=== PATIENT | female | born 1945 | race Caucasian/White ===

== ENCOUNTER 2020-07-23 10:21 | Day surgery (SDC) | payer MEDICARE, OTHER ==
[~2020-07-23 10:21] MED LIST: Lactated Ringers 1,000 ML IV SCH
--- NOTE | 2020-07-23 12:02 | PCM.PREANE ---
Preanesthetic Assessment - Anesthesia/Transfusion/Family Hx Anesthesia History: Prior Anesthesia Without Reaction Family History of Anesthesia Reaction: No Transfusion History: No Prior Transfusion(s) Intubation History: Unknown - Review of Systems General: No Symptoms Pulmonary: No Symptoms Cardiovascular: No Symptoms Gastrointestinal: No Symptoms Neurological: No Symptoms Other: Reports: None - Physical Assessment Height: 5 ft 6 in Weight: 81.647 kg ASA Class: 2 Mental Status: Alert & Oriented x3 Airway Class: Mallampati = 2 Dentition: Reports: Normal Dentition, Bridge (fixed left lower) Thyro-Mental Finger Breadths: 3 Mouth Opening Finger Breadths: 3 ROM/Head Extension: Limited/Partial Lungs: Clear to Auscultation, Normal Respiratory Effort Cardiovascular: Regular Rate, Regular Rhythm - Lab Values: Laboratory Last Values SARS-CoV-2 RNA ([facility]) NEGATIVE (NEGATIVE) 07/23/20 10:18 - Allergies Allergies/Adverse Reactions: Allergies Allergy/AdvReac Type Severity Reaction Status Date / Time No Known Allergies Allergy Verified 07/22/20 15:34 - Blood Blood Available: No - Anesthesia Plan Pre-Op Medication Ordered: None - Acknowledgements Anesthesia Type Planned: General Anesthesia Pt an Appropriate Candidate for the Planned Anesthesia: Yes Alternatives and Risks of Anesthesia Discussed w Pt/Guardian: Yes Pt/Guardian Understands and Agrees with Anesthesia Plan: Yes PreAnesthesia Questionnaire HEENT History: Reports: Other (See Below) Other HEENT History: glasses Cardiovascular History: Reports: High Cholesterol, Hypertension Respiratory History: Reports: Sleep Apnea Other Respiratory History: uses CPAP Gastrointestinal History: Reports: None Genitourinary History: Reports: None STOCK PATCHER History: Reports: Musculoskeletal History: Reports: Arthritis, Fracture, Other (See Below) (rt. ankle fx. at present) Neurological History: Reports: None Psychiatric History: Reports: None Endocrine/Metabolic History: Reports: None Hematologic History: Reports: None Immunologic History: Reports: None Oncologic (Cancer) History: Reports: None Dermatologic History: Reports: None - Past Surgical History Head Surgeries/Procedures: Reports: None HEENT Surgical History: Reports: None Cardiovascular Surgical History: Reports: None Respiratory Surgical History: Reports: None GI Surgical History: Reports: Appendectomy Female Surgical History: Reports: Hysterectomy, Other (See Below) Other Female Surgeries/Procedures: laparotomy for removal of fibroid Endocrine Surgical History: Reports: None Neurological Surgical History: Reports: None Musculoskeletal Surgical History: Reports: Other (See Below) Other Musculoskeletal Surgeries/Procedures:: sx for fx rt wrist Oncologic Surgical History: Reports: None Dermatological Surgical History: Reports: None - SUBSTANCE USE Tobacco Use Status *Q: Never Tobacco User - HOME MEDS Home Medications: Home Meds Antiox.mv No.10/Omeg3s/Lut/Cristian [I-Caps with Lutein-Callery 3 SFG] 1 tab PO ASDIRECTED 07/22/20 [History] Calc/D3/Mag/Zn/Best/Matt/Tuttle [Calcium 600 MG Plus Vit D] 1 tab PO DAILY 07/22/20 [History] Calcium Citrate 600 mg PO DAILY 07/22/20 [History] Cetirizine HCl [Allergy Relief] 10 mg PO DAILY 07/22/20 [History] Ciprofloxacin HCl [Cipro] 500 mg PO BID 07/22/20 [History] Cyanocobalamin (Vitamin B12) [Vitamin B12] 500 mcg PO DAILY 07/22/20 [History] Fish Oil/DHA/EPA [Fish Oil 1,200 MG] 300 mg PO BID 07/22/20 [History] Irbesartan 150 mg PO DAILY 07/22/20 [History] Magnesium 250 mg PO DAILY 07/22/20 [History] Metoprolol Tartrate 100 mg PO DAILY 07/22/20 [History] Multivit-Min/Iron/Folic/Lutein [Centrum Silver Women Tablet] 1 tab PO ASDIRECTED 07/22/20 [History] Turmeric Root Extract [Turmeric] 500 mg PO DAILY 07/22/20 [History] Ubidecarenone [Coq10] 50 mg PO DAILY 07/22/20 [History] Verapamil HCl [Verapamil Sr] 240 mg PO DAILY 07/22/20 [History] - CURRENT (IN HOUSE) MEDS Current Meds: Current Medications Lactated Ringer's (Ringers, Lactated) 1,000 mls @ 125 mls/hr IV ASDIRECTED [facility]
[2020-07-23] MEDS ORDERED: Bupivacaine 0.5% 30 ML SDV ONE (12:28)
[2020-07-23] MEDS ORDERED: Midazolam 1 MG/ML 2 ML SDV ONE (12:32)
[2020-07-23] MEDS ORDERED: Propofol 200 MG/20 ML SDV ONE ×2 (12:32→12:34)
[2020-07-23] MEDS ORDERED: Ondansetron 4 MG/2 ML SDV ONE (12:32)
[2020-07-23] MEDS ORDERED: fentaNYL 250 MCG/5 ML SDV ONE (12:32)
[2020-07-23] MEDS ORDERED: Lidocaine 2% 5 ML SDV ONE (12:32)
[2020-07-23] MEDS ORDERED: Ketamine 500 mg/10 ML MDV ONE (12:35)
[2020-07-23] MEDS ORDERED: ceFAZolin/Dextrose,Iso-Osmotic 2 GM/50 ML Duplex Bag IV ONE (12:39)
[2020-07-23] MEDS ORDERED: ceFAZolin 2 GM in Premix Bag 1 BAG IV ONE (12:41)
--- NOTE | 2020-07-23 14:05 | PCM.OPNOTE ---
- General Post-Op/Procedure Note Date of Surgery/Procedure: 07/23/20 Operative Procedure(s): Open reduction and internal fixation of right distal fibula/lateral malleolus fracture Findings: Displaced lateral malleolus ankle fracture Pre Op Diagnosis: Right displaced lateral malleolus ankle fracture Post-Op Diagnosis: Right displaced lateral malleolus ankle fracture Anesthesia Technique: General LMA Primary Surgeon: William Medrano Sea Foam Kiss Maker: Heide Taveras Reason Sea Foam Kiss Maker Was Necessary: Retraction and positioning Pathology: None EBL in mLs: 5 Complications: None Free Text/Narrative:: Patient slipped on the ice and injured her right ankle. 2 days later she was seen in the [facility] and noted to have a displaced lateral malleolus ankle fracture. I saw her in referral and recommended open reduction internal fixation because of the unstable pattern of the fracture. All questions were answered. Patient consented to proceed with surgery. She was medically cleared for surgery. Patient was taken to the operating room. After adequate general anesthesia she remained in the supine position. Tourniquet is placed around the right proximal thigh. Right lower extremities prepped and draped in usual sterile manner. A longitudinal incision was made along the posterior border of the fibula. Skin was incised with a scalpel. Subcutaneous tissue was incised electrocautery. Fascia was opened over the distal fibula. A carrizales elevator was used to elevate the periosteum. The fracture was exposed and cleared of callus. The fracture was able to be manually reduced. A 5 hole one third tubular plate was then applied and sequential screws placed in the second third and fourth holes with the plate reducing the fracture anatomically. Additional screws were then placed in the first and fifth holes. C arm was brought in and noted anatomic reduction of the fracture with reconstruction of the mortise with even gaps. Wounds were irrigated. Fascia was closed with interrupted #1 Vicryl suture. Subcutaneous tissue was closed with interrupted 2-0 Vicryl suture. Monocryl was used for final skin closure. Sterile dressing was applied and patient was placed in a short leg splint and accompanied the recovery room in stable condition. Pain management: Acetaminophen and hydrocodone. Prophylactic antibiotics: Not indicated for outpatient procedure. Venous thromboembolism prophylaxis: 2 baby aspirin daily for 90 days. Restrictions: Patient is nonweightbearing on her right lower extremity for 6 weeks. She should remain in the postoperative splint for 2 weeks until she is seen in clinic and then be placed back in her boot but remain nonweightbearing for an additional 4 weeks. She may do ankle range of motion and stretching exercises on her own. At 6 weeks she will become weightbearing as tolerated in the fracture boot for an additional 6 weeks.
[2020-07-23] MEDS ORDERED: oxyCODONE 5 MG Tab ONE (15:31)
[2020-07-23] MEDS ORDERED: oxyCODONE 5 MG Tab PO ONE (15:32)
--- NOTE | 2020-07-23 15:53 | PCM.POSTAN ---
POST ANESTHESIA ASSESSMENT - MENTAL STATUS Mental Status: Alert (Late entry, assessed at 1147), Oriented - VITAL SIGNS Vital Signs: Last Vital Signs Temp 36.2 C 07/23/20 14:14 Pulse 58 L 07/23/20 14:45 Resp 14 07/23/20 14:45 BP 132/64 07/23/20 14:45 Pulse Ox 94 L 07/23/20 14:45 - RESPIRATORY Respiratory Status: Respiratory Rate WNL, Airway Patent, O2 Saturation Stable - CARDIOVASCULAR CV Status: Pulse Rate WNL, Blood Pressure Stable - GASTROINTESTINAL GI Status: No Symptoms - PAIN Pain Score: 3 (RLE) - POST OP HYDRATION Hydration Status: Adequate & Stable
--- NOTE | 2020-07-23 15:54 | PCM48HPAN ---
Post Anesthesia Note - EVALUATION WITHIN 48HRS OF ANESTHETIC Vital Signs in Normal Range: Yes Patient Participated in Evaluation: Yes Respiratory Function Stable: Yes Airway Patent: Yes Cardiovascular Function Stable: Yes Hydration Status Stable: Yes Pain Control Satisfactory: Yes Nausea and Vomiting Control Satisfactory: Yes Mental Status Recovered: Yes Vital Signs: Last Vital Signs Temp 36.2 C 07/23/20 14:14 Pulse 58 L 07/23/20 14:45 Resp 14 07/23/20 14:45 BP 132/64 07/23/20 14:45 Pulse Ox 94 L 07/23/20 14:45 - COMMENTS/OBSERVATIONS Free Text/Narrative:: Taking PO without nausea, pain well-controlled, alert, oriented, and conversing. Okay to discharge home.
--- NOTE | 2020-07-23 20:49 | CR ---
Indication: ORIF distal fibula. Technique: 2.0 seconds of intraoperative fluoroscopy was provided. Two intraoperative images were obtained. Comparison: None Findings: A plate and screws are identified at the level of distal fibula. Impression: Intraoperative images obtained. Dictated by Genie Yusuf MD @ Jul 23 2020 8:46PM Signed by Dr. Genie Yusuf @ Jul 23 2020 8:47PM
== END 2020-07-23 16:00 | disposition home or self-care (01) ==
LOC: MW.SDS 10:21
PROVIDERS: ATTEND Orthopaedic Surgery
DX: S82.61XA Displaced fracture of lateral malleolus of right fibula, initial encounter for closed fracture (principal); I10 Essential (primary) hypertension; N39.0 Urinary tract infection, site not specified; E78.00 Pure hypercholesterolemia, unspecified; G47.30 Sleep apnea, unspecified; Z01.812 Encounter for preprocedural laboratory examination; Z20.822 Contact with and (suspected) exposure to COVID-19; Z90.49 Acquired absence of other specified parts of digestive tract; Z79.899 Other long term (current) drug therapy; W00.0XXA Fall on same level due to ice and snow, initial encounter
CPT/HCPCS: 01480; A9270-GY; J0131; J0690; J2001; J2250; J2405; J2704; J3010; J3490; J7120; U0002